=== PATIENT | female | born 1995 | race Caucasian/White ===

== ENCOUNTER 2017-08-13 10:13 | Emergency (ER) | payer OTHER ==
[2017-08-13 10:19] VITALS: BP 125/83; PULSE 103; RESP 20; TEMP 99; O2SAT 98
--- NOTE | 2017-08-13 10:43 | EDPHY ---
General Narrative: CHIEF COMPLAINT: Sore throat HISTORY OF PRESENT ILLNESS: Patient complains of 2-3 days history of sore throat. She feels as though she has strep pharyngitis, as he has had this several times in the past year. Significantly painful. She feels as though the right side is worse than the left. No difficulty eating or drinking but it is painful to do so. No drooling. No chest pain. No shortness of breath. No runny nose. No headache. No neck pain or stiffness. She is traveling from [place] and here until Wednesday. She has an appointment with ENT physician when she returns back to [place] next week. No other associated complaints or modifying factors. REVIEW OF SYSTEMS: Ten systems reviewed and are negative unless otherwise noted in the HPI PCP: Back in [place] SPECIALISTS: Pending ENT physician when she returns to [place] PAST MEDICAL HISTORY: Recurrence strep pharyngitis PAST SURGICAL HISTORY: None SOCIAL HISTORY: Nonsmoker. Occasional alcohol. Currently a college student FAMILY HISTORY: Noncontributory EXAMINATION General Appearance: Alert, no distress Head: normocephalic, atraumatic Eyes: Pupils equal and round, no conjunctival pallor or injection. EOMs intact. ENT, Mouth: Mucous membranes moist. Uvula midline. Tonsils are symmetrically enlarged with tonsillar exudate. There is erythema of the posterior pharynx but no edema. The floor of the mouth is normal in appearance. The airway is widely patent. No trismus. Neck: Anterior cervical lymphadenopathy. Normal inspection, supple, non- tender. Painless range of motion all planes. Respiratory: No retractions or distress Cardiovascular: Regular rate. Good signs of perfusion Neurological: A&O, nonfocal, normal gait Skin: Warm and dry, no rash. No petechiae or purpura Extremities: Nontender, no pedal edema Psychiatric: Mood and affect normal DIFFERENTIAL DIAGNOSES: Including but not limited to strep pharyngitis, viral pharyngitis, peritonsillar abscess, Tino's MDM: 10:40 a.m. Sore throat of 2-3 days duration with positive strep test. No evidence of peritonsillar abscess. Her airway is patent. I will treat her with Augmentin and Decadron as she has been treated with penicillin 60 days ago. She is in no acute distress. Vital signs are stable with mild, permissive tachycardia. She is from [place] and will follow up with her physician back in [place] when she returns on Wednesday. She has an appointment with an ENT physician for surgical evaluation when she returns. ED precautions discussed. She is comfortable this plan and discharged in stable condition. - History Smoking Status: Never smoked - Objective Vital Signs: Initial Vital Signs Temperature (C) 99.0 F 08/13/17 10:17 Heart Rate 103 H 08/13/17 10:17 Respiratory Rate 20 08/13/17 10:17 Blood Pressure 125/83 H 08/13/17 10:17 O2 Sat (%) 98 08/13/17 10:17 O2 Delivery Mode Room Air Allergies/Adverse Reactions: No Known Allergies Allergy (Unverified 08/13/17 10:15) Home Medications: Medication Instructions Recorded Acetaminophen/Codeine 300/30Mg 1 each PO Q6 PRN #11 tab 08/13/17 [Tylenol #3 (*)] Amoxicillin/Clavulanate Pot 875 mg PO BID #20 tab 08/13/17 [Augmentin 875 MG TAB (*)] Apri 28 Day Tablet 08/13/17 Dexamethasone [Decadron 4 MG (*)] 8 mg PO DAILY #4 tab 08/13/17 Laboratory Results: 08/13/17 10:20 Group A Strep Screen POSITIVE H (NEGATIVE) Departure - Departure Disposition: Home, Routine, Self-Care Clinical Impression: Acute streptococcal pharyngitis Acute streptococcal tonsillitis Qualifiers: Streptococcal tonsillitis recurrence: recurrent Qualified Code(s): J03.01 - Acute recurrent streptococcal tonsillitis Condition: Good Instructions: Strep Throat (ED), Tonsillitis (ED) Additional Instructions: 1. Medications as prescribed to completion 2. ED precautions as discussed 3. Follow up with the ENT physician when you return back to [place] Referrals: NONE *PRIMARY CARE P,. [Primary Care Provider] - As per Instructions Dot Ivory MD [Medical Doctor] - As per Instructions Prescriptions: Acetaminophen/Codeine 300/30Mg [Tylenol #3 (*)] 1 each PO Q6 PRN #11 tab PRN Reason: Pain, Mild Amoxicillin/Clavulanate Pot [Augmentin 875 MG TAB (*)] 875 mg PO BID #20 tab Dexamethasone [Decadron 4 MG (*)] 8 mg PO DAILY #4 tab
== END 2017-08-13 10:55 | disposition home or self-care (01) ==
DX: J03.01 Acute recurrent streptococcal tonsillitis (principal)